=== PATIENT | female | born 1985 | race Two or more races ===

== ENCOUNTER 2021-06-25 09:00 | Day surgery (SDC) | payer OTHER ==
[2021-06-25] MEDS ORDERED: MACROBID 100 M100 MG PO (10:26)
[2021-06-25] MEDS ORDERED: ULTRACET PO (10:26)
== END 2021-06-25 12:25 | disposition home or self-care (01) ==
LOC: CIR.AMB 09:00
PROVIDERS: ATTEND Obstetrics & Gynecology Gynecology
DX: N39.3 Stress incontinence (female) (male) (principal); Z91.013 Allergy to seafood; J45.909 Unspecified asthma, uncomplicated